=== PATIENT | male | born 1990 | race Caucasian/White ===

== ENCOUNTER 2024-04-18 12:04 | Emergency (ER) | payer OTHER, SELFPAY ==
[2024-04-18 12:08] VITALS: BP 131/85; PULSE 103; TEMP 36.7; O2SAT 96; BMI 30.8
[2024-04-18] MEDS: 0.9 % SODIUM CHLORIDE 1,000 ML 1000 ML IV (12:16)
[2024-04-18] MEDS: KETOROLAC TROMETHAMINE 30 MG/ML VIAL IVP (12:17)
[2024-04-18] MEDS: ONDANSETRON PF 4 MG/2 ML VIAL IV (12:17)
[2024-04-18 12:26] LABS: Basophils Percent Auto 0.6 % (0.2-2.0); Eosinophils Percent Auto 0.6 % (0.9-7.0); Hematocrit 45.9 % (42.0-54.0); Hemoglobin 15.6 g/dL (14.0-18.0); Immature Granulocytes Pct Auto 0.1 % (0.0-0.5); Lymphocytes Percent Auto 28.8 % (20.5-60.0); Mean Corpuscular Hemoglobin 29.6 pg (25.9-34.0); Mean Corpuscular Volume 87.1 fL (80.0-94.0); Mean Platelet Volume 9.2 fL (9.5-13.5); Monocytes Absolute Auto 0.5 10^3/uL (0.3-0.8); Monocytes Percent Auto 6.8 % (1.7-12.0); Neutrophils Absolute Auto 4.3 10^3/uL (1.4-6.5); Neutrophils Percent Auto 63.1 % (43.0-75.0); Platelet Count 318 10^3/uL (150-450); Red Blood Count 5.27 10^6/uL (4.70-6.10); Red Cell Distribution Width 13.1 % (11.0-15.0); White Blood Count 6.9 10^3/uL (4.0-11.0)
[2024-04-18 12:27] LABS: Immature Granulocytes Abs Auto 0.01 10^3/uL (0.00-0.03)
[2024-04-18 13:02] LABS: Alanine Aminotransferase 169 U/L (16-63); Alkaline Phosphatase 45 U/L (46-116); Anion Gap 13.4; Aspartate Amino Transferase 101 U/L (15-37); BUN Creatinine Ratio 14.3; Bilirubin Total 0.4 mg/dL (0.2-1.0); Calcium 9.5 mg/dL (8.5-10.1); Carbon Dioxide 30.4 mmol/L (21.0-32.0); Chloride 100 mmol/L (98-107); Estimated GFR (African America >60 (>=60); Estimated GFR (Non-African Ame >60 (>=60); Glucose 150 mg/dL (74-106); Potassium 3.8 mmol/L (3.5-5.1); Sodium 140 mmol/L (136-145)
--- NOTE | 2024-04-18 13:12 | ED_ITS ---
HPI HPI - General Adult General Chief complaint: Alcohol Stated complaint: GENERAL WEKANESS Time Seen by Provider: 04/18/24 12:04 Source: patient Mode of arrival: walk-in Limitations: no limitations History of Present Illness HPI narrative: Patient presents ED complaining of feeling unwell. He said he drank a lot of alcohol last night and he has been vomiting this morning and cannot keep anything down. He said he was feeling dizzy and lightheaded and His stomach was upset. He said he has been trying to drink Gatorade and things with electrolytes but he is unable to keep anything down and now he is feeling dehydrated. He admits to being a social drinker but states he does not drink alcohol like this daily. Related Data Home Medications ?Medication ?Instructions ?Recorded ?Confirmed No Known Home Medications 04/18/24 04/18/24 Allergies Allergy/AdvReac Type Severity Reaction Status Date / Time No Known Drug Allergies Allergy Verified 04/18/24 12:10 Opioid HPI Opioid Management Most Recent Opioid Data: Last Pain Scale 8 04/18/24 12:17 Last MAR Pain Assessment 04/18/24 12:17 Review of Systems ROS Status of ROS 10 or more systems reviewed and unremark able except as noted in history and below Exam Narrative Exam Narrative: General: alert, no acute distress Cardiovascular: regular rate and rhythm, normal peripheral perfusion. Respiratory: Lungs CTA, respirations non labored. Extremities: no deformity, no trauma. Neurological: oriented x 4, LOC appropriate for age. Constitutional Vital Signs, click to edit/add: Last Vital Signs Temp 98.1 F 04/18/24 12:08 Pulse 103 H 04/18/24 12:08 Resp 18 04/18/24 12:08 BP 131/85 04/18/24 12:08 Pulse Ox 96 04/18/24 12:08 O2 Del Method Room Air 04/18/24 12:08 Course Vital Signs Vital signs: Vital Signs Temperature 98.1 F 04/18/24 12:08 Pulse Rate 103 H 04/18/24 12:08 Respiratory Rate 18 04/18/24 12:08 Blood Pressure 131/85 04/18/24 12:08 Pulse Oximetry 96 04/18/24 12:08 Oxygen Delivery Method Room Air 04/18/24 12:08 Temperature 98.1 F 04/18/24 12:08 Pulse Rate 103 H 04/18/24 12:08 Respiratory Rate 18 04/18/24 12:08 Blood Pressure 131/85 04/18/24 12:08 Pulse Oximetry 96 04/18/24 12:08 Oxygen Delivery Method Room Air 04/18/24 12:08 Medical Decision Making MDM Narrative Medical decision making narrative: Labs are nonacute. Slightly elevated LFTs most likely from the drinking. He s tates he is feeling better after IV fluids Toradol and Zofran. Follow-up with family doctor otherwise return to ER if worsening symptoms. Patient is comfortable care plan for home. Differential Diagnosis Differential Diagnosis: Dehydration alcohol intoxication, gastroenteritis, electrolyte abnormality Lab Data Lab results reviewed: Yes I reviewed the patient's lab results Labs: Lab Results 04/18/24 Range/Units 12:18 WBC 6.9 (4.0-11.0) 10^3/uL RBC 5.27 (4.70-6.10) 10^6/uL Hgb 15.6 (14.0-18.0) g/dL Hct 45.9 (42.0-54.0) % MCV 87.1 (80.0-94.0) fL MCH 29.6 (25.9-34.0) pg MCHC 34.0 (29.9-35.2) g/dL RDW 13.1 (11.0-15.0) % Plt Count 318 (150-450) 10^3/uL MPV 9.2 L (9.5-13.5) fL Neut % (Auto) 63.1 (43.0-75.0) % Lymph % (Auto) 28.8 (20.5-60.0) % [place] % (Auto) 6.8 (1.7-12.0) % Eos % (Auto) 0.6 L (0.9-7.0) % Baso % (Auto) 0.6 (0.2-2.0) % Neut # (Auto) 4.3 (1.4-6.5) 10^3/uL Lymph # (Auto) 2.0 (1.2-3.8) 10^3/uL [place] # (Auto) 0.5 (0.3-0.8) 10^3/uL Eos # (Auto) 0.0 (0.0-0.7) 10^3/uL Baso # (Auto) 0.0 (0.0-0.1) 10^3/uL Abs Immat Gran (auto) 0.01 (0.00-0.03) 10^3/uL Imm/Tot Granulo (auto) 0.1 (0.0-0.5) % Sodium 140 (136-145) mmol/L Potassium 3.8 (3.5-5.1) mmol/L Chloride 100 (98-107) mmol/L Carbon Dioxide 30.4 (21.0-32.0) mmol/L Anion Gap 13.4 BUN 13.0 (7.0-18.0) mg/dL Creatinine 0.91 (0.70-1.30) mg/dL Est GFR ( Amer) >60 (>=60) Est GFR (Non-Af Amer) >60 (>=60) BUN/Creatinine Ratio 14.3 Glucose 150 H (74-106) mg/dL Calcium 9.5 (8.5-10.1) mg/dL Total Bilirubin 0.4 (0.2-1.0) mg/dL AST 101 H (15-37) U/L ALT 169 H (16-63) U/L Alkaline Phosphatase 45 L (46-116) U/L Total Protein 8.0 (6.4-8.2) g/dL Albumin 4.0 (3.4-5.0) g/dL Globulin 4.0 g/dL Albumin/Globulin Ratio 1.0 Discharge Plan Discharge Stand Alone Forms: Work/School Release, Portal Instructions Chief Complaint: Alcohol Clinical Impression: Hangover Patient Disposition: Home, Self-Care Time of Disposition Decision: 13:14 Condition: Good Mode of Transportation: Private Vehicle Prescriptions / Home Meds: No Action No Known Home Medications Print Language: [place] Instructions: Abuse of Alcohol (ED) Referrals: Physician,Non-Staff, MD [Primary Care Provider] - 1 week
[2024-04-18 13:25] VITALS: PULSE 89; O2SAT 99
== END 2024-04-18 13:26 | disposition home or self-care (01) ==
PROVIDERS: Emergency Provider Emergency Medicine
DX: F10.129 Alcohol abuse with intoxication, unspecified (principal)
CPT/HCPCS: 36415; 80053; 85025; 96361; 96374; 96375; 99284; J1885; J2405